=== PATIENT | female | born 1980 | race Caucasian/White ===

== ENCOUNTER 2024-05-27 09:35 | Day surgery (SDC) | payer OTHER, SELFPAY ==
[2024-05-17 13:05] VITALS: BMI 32.4
[2024-05-27] VITALS (9 sets, daily range): BP systolic 105–139; BP diastolic 63–95; PULSE 95–112; RESP 9–18; TEMP 36.7–37.1; O2SAT 94–100; BMI 32.4
--- NOTE | 2024-05-27 | PATH_ITS ---
[facility] Accession Number: [id number] No. of containers..01 Tissue . 01 Material submitted: . fallopian tube - BILATERAL FALLOPIAN TUBES . 01 Diagnosis: BILATERAL FALLOPIAN TUBES, BILATERAL SALPINGECTOMY: Bilateral fimbriated fallopian tubes with benign paratubal cysts, otherwise unremarkable, full cross-sections. MRV 05/31/2024 1302 Local . 01 Electronically signed: . Tiffanie Coombs DO, Pathologist NPI- [id number] . 01 Gross description: . Received in formalin with two identifiers and bilateral fallopian tubes, are two unoriented fimbriated fallopian tubes (5.6 x 0.5 cm and 4.0 x 0.5 cm, respectively). An additional nonfimbriated tubular soft tissue fragment is 1.6 cm in length by 0.7 cm in diameter, and a simple cystic structure measures 1.2 x 0.9 x 0.9 cm, and is filled with palmer serous fluid. . The serosa is palmer to violaceous with attached cysts up to 0.1 cm in greatest dimension filled with cloudy serous fluid. The lumina of all three tubular tissue fragments are stellate and unremarkable. [employer] sections are submitted as follows: . A1: Longer fallopian tube to include one-half of bisected fimbriae and cross sections. A2: Cornish fallopian tube to include one-half of bisected fimbriae and cross sections. A3; Second tubular fragment and intact cyst. ([id number]) /MRV 05/28/2024 1808 Local . 01 Pathologist provided ICD-10: Z30.2 . 01 CPT . 319291 Specimen Comment: A courtesy copy of this report has been sent to [phone] Performed at: [address], [place], [place] [id number] MD Lino Salazar MD Phone: [phone]
[2024-05-27] MEDS: LACTATED RINGERS 1,000 ML 42 ML IV ×2 (10:07→11:50)
--- NOTE | 2024-05-27 10:22 | PM.PREOP ---
Pre-operative Note COVID-19 COVID-19 status: Not tested Interval Note History & Physical reviewed/Exam performed by Physician: Yes Changes to H&P: No
[2024-05-27] MEDS: PREGABALIN 75 MG CAPSULE PO (10:32)
[2024-05-27] MEDS: ACETAMINOPHEN 325 MG TABLET 975 MG PO (10:32)
[2024-05-27] MEDS: FAMOTIDINE 20 MG/2 ML VIAL IV (10:34)
[2024-05-27] MEDS: ONDANSETRON 4 MG/2 ML INJ IV ×2 (10:34→12:13)
[2024-05-27] MEDS: SCOPOLAMINE 1 PATCH TOP (10:40)
--- NOTE | 2024-05-27 11:00 | SUR.OPER ---
Lithotomy on padded OR bed, head on pillow, arms secured on padded arm boards at <90 degrees abduction. Legs secured in padded yellow fins stirrups.
[2024-05-27] MEDS: BUPIVACAINE 0.5% W/ EPI (PF) 30 ML VIAL INJ (11:51)
--- NOTE | 2024-05-27 12:09 | P.OP_ITS ---
Operative Date/Time/Diagnoses Date of procedure: 05/27/24 Time of procedure: 11:00 Pre-op diagnosis: Request for sterilization Post-op diagnosis: other (YOLANDA, minimal pelvic peritoneal endometriosis) Procedure & Clinicians Procedure: Procedures Operation Date: 05/27/24 11:15 Actual Procedure Side Surgeon p Laparoscopic Bilateral Salpingectomy, with fulguration of endometrial implants Bilateral Yash Judge MD Indications: Giana is a 43-year-old , LMP ongoing, who presents today to discuss elect behzad sterilization. Her has a vasectomy but she herself would like to take affirmative steps to prevent . She experienced menarche at age 13 and has had regular predictable periods throughout her reproductive years. She has used Depo-Provera in the past for control and more recently had a Nexplanon removed about 18 months ago. Her menses are regular and only last a few days with minimal discomfort. Patient has never had any abdominal/pelvic surgery and paps have been normal throughout her reproductive years. Patient counseled regarding alternatives, risks, benefits, and potential complications associated with laparoscopic bilateral salpingectomy. Patient is well-versed in available contraceptive options but is committed to pursuing sterilization with the understanding that this procedure will result in her permanently and irreversibly being unable to bear children without benefit of assisted reproductive technology. In addition she understands that there is a small risk (1-03/999) of failing to prevent and should that occur, the gestation with most likely be ectopic a location. With full understanding of the above she expresses a desire to move forward with sterilization and she presents today for her scheduled surgery. Surgeon: Yash Judge Anesthesia Type: General Operative Notes Findings: The uterus is normal in size and shape. The anterior cul-de-sac is unremarkable with no evidence of endometriosis or scarring. Both fallopian tubes appeared to be normal. Both ovaries also appeared to be normal with a stigma noted on the left ovary. In the posterior cul-de-sac there were several punctate peritoneal implants of endometriosis, all of which were destroyed with monopolar current. The remainder of the abdomen and pelvis were normal to laparoscopic inspection. Closure Type: primary Specimen(s): left tube and right tube Estimated blood loss (mL): 5 Blood products transfused: none Procedure in detail: With the patient under satisfactory general anesthesia in the modified dorsal lithotomy position, the perineum, vagina, and abdomen were prepped and draped for IUD removal and laparoscopic bilateral salpingectomy. A pre-surgical safety time-out was then taken in accordance with [facility] [place] protocols. The umbilicus was then infiltrated with 0.5% Marcaine with epinephrine and 1 cm vertical incision was made in the inferior aspect of the umbilicus. Veress needle was used to insufflate the abdomen with carbon dioxide and once appropriately insufflated, 5 mm bladeless trocar and sleeve were inserted through the incision. Proper placement of the sleeve was confirmed with laparoscopic visualization and insufflation of the abdomen continued. A 2nd and 3rd 5 mm laparoscopic port were placed in the right and left mid quadrants using a similar technique and using a 3 puncture technique, the abdomen and pelvis were visualized with the findings as noted above. The distal aspect of the left fallopian tube was then grasped with a grasping forceps and using a Power Seal device, fimbria ovarica was coagulated and divided the dissection using the Power Seal continuing across the mesosalpinx to the cornua where the base fallopian tube was coagulated and divided. The left fallopian tube was then removed through one of the ports and submitted pathologic specimen. Attention was then turned to the right adnexa with distal tube grasped with a grasping forcep. The Power Seal device was then used to coagulate fimbria ovarica and the dissection was carried across the mesosalpinx to the cornua where the fallopian tube on the right side was amputated at the cornua following coagulation proximal tube the Power Seal device. Pelvis was inspected and the areas of superficial peritoneal endometriosis were noted as above and destroyed with judicious use of monopolar current. The areas of endometriosis were documented photographically both before and after fulguration. There were no other abnormalities noted following bilateral salpingectomy. The pneumoperitoneum was then vented and the ports removed from the abdominal wall. Port incisions were then closed with 4-0 Monocryl using inverted interrupted stitches and skin glue was applied. Appropriate dressings were then applied, patient was awakened, and transferred to the PACU for a period of observation after having tolerated the procedure well. Complications: none Post-operative Condition: stable Disposition: PACU Plan for aftercare: Routine postoperative care with plans for follow-up in 2 weeks or as needed.
--- NOTE | 2024-05-27 12:29 | SUR.PHASEI ---
Shayla Tesfaye CRNA, notified patient nauseated and has been medicated with Zorfan. VVO Reglan 10mg IV now.
[2024-05-27] MEDS: METOCLOPRAMIDE 10 MG/2 ML INJ IV (12:31)
== END 2024-05-27 14:20 | disposition home or self-care (01) ==
PROVIDERS: PCP Obstetrics & Gynecology; Referring Provider Obstetrics & Gynecology; Visit Provider Obstetrics & Gynecology
PROC: 0UT74ZZ Resection of Bilateral Fallopian Tubes, Percutaneous Endoscopic Approach (ICD-10-PCS; CPT 58661; principal; 2024-05-27 11:15)
DX: Z30.2 Encounter for sterilization (principal); N80.329 Endometriosis of the posterior cul-de-sac, unspecified depth; N83.8 Other noninflammatory disorders of ovary, fallopian tube and broad ligament
CPT/HCPCS: 58661; J1100; J1885; J2405; J2704; J2765; J3010